=== PATIENT | male | born 1995 | race African-American/Black ===

== ENCOUNTER 2022-07-24 04:14 | Emergency (ER) | payer SELFPAY ==
[~2022-07-24] VITALS: Ht 182.9 cm; Wt 91.0 kg
[2022-07-24 04:20] VITALS: BP 108/67
[2022-07-24 05:59] LABS: BASOPHILS % 0.5 % (0.0-2.0); EOSINOPHILS % 1.5 % (0.0-5.0); HEMATOCRIT. 41.4 % (42.0-52.0); HEMOGLOBIN. 13.4 g/dL (14.0-18.0); LYMPHOCYTES % 17.5 % (20.0-50.0); MEAN CORPUSCULAR HEMOGLOBIN 23.8 pg (28.0-32.0); MEAN CORPUSCULAR VOLUME 73.5 fL (80.0-94.0); MEAN PLATELET VOLUME 8.6 fl (7.4-10.4); MONOCYTES % 6.2 % (2.0-8.0); NEUTROPHILS % 74.3 % (40.0-76.0); PLATELET 239 x1000/uL (130-400); RED BLOOD CELL COUNT 5.63 mill/uL (4.7-6.1); RED CELL DISTRIBUTION WIDTH 13.6 % (11.6-14.6)
[2022-07-24 06:02] LABS: CHLORIDE 106 mEq/L (98-107)
== END 2022-07-24 07:03 | disposition home or self-care (01) ==
LOC: ER 04:14
DX: M79.10 Myalgia, unspecified site (principal); F32.9 Major depressive disorder, single episode, unspecified
CPT/HCPCS: 36415; 80053; 85025; 99283